=== PATIENT | female | born 1950 | race Caucasian/White ===

== ENCOUNTER 2020-03-26 01:56 | Outpatient (CLI) | payer MEDICARE, BC, SELFPAY ==
--- NOTE | 2020-03-26 | DI.MAMMO_ITS ---
EXAM: MG MAMMO SCREENING CLINICAL HISTORY: SCREENING, Z12.31 TECHNIQUE: Mammograms were interpreted according to the usual protocol including computer analysis w [email or web address] CAD system, tomosynthesis and C-view imaging. COMPARISON: FINDINGS: The breasts are of moderate density with fairly symmetrical distribution of fibroglandular tissue. N o dominant mass or clumped microcalcification is identified in either breast. The current examinatio n is compared with previous examinations including January 2018 and there has been no gross interval patel ge in appearance in comparison with the prior studies. IMPRESSION: No specific evidence of malignancy at this time. Routine screening examinations are suggested at yea rly intervals in this age group according to the ACS ACR guidelines. BI-RADS Category 1 - Negative Breast Density - Category B - Scattered areas of fibroglandular density
== END 2020-03-26 02:16 ==
PROVIDERS: PCP Family Medicine; Visit Provider Family Medicine
DX: Z12.31 Encounter for screening mammogram for malignant neoplasm of breast (principal)
CPT/HCPCS: 77063; 77067

== ENCOUNTER 2022-05-11 16:38 | Outpatient (REF) | payer MEDICARE, BC, SELFPAY | END 2022-05-11 16:39 | disposition home or self-care (01) | LOC: LBN 16:38 | PROVIDERS: PCP Family Medicine; Visit Provider Registered Nurse Maternal Newborn | DX: H61.891 Other specified disorders of right external ear | CPT/HCPCS: 87070 ==

== ENCOUNTER 2022-05-15 19:35 | Emergency (ER) | payer MEDICARE, BC, SELFPAY ==
[2022-05-15] VITALS (33 sets, daily range): BP systolic 126–181; BP diastolic 31–74; PULSE 71–88; RESP 11–24; TEMP 36.6; O2SAT 79–99
--- NOTE | 2022-05-15 19:30 | RT.EKG_ITS ---
APPROVED REPORT Exam: Resting ECG Reason for Exam: syncope Patient Location: E HR:73 bpm ECG Measurements Heart Rate 73 AXIS CO 172 P 58 QRSd 158 QRS 87 QT 460 T -2 QTc 506 Conclusion Sinus rhythm Right bundle branch block.
--- NOTE | 2022-05-15 19:40 | ED.GENADUL_ITS ---
Discharge Plan Disposition Patient Disposition: HOME Condition: Stable Discharge Details Clinical Impression: Syncope Primary Care Provider: Raiza De La Vega ED Provider: Gary Wu Home Meds and New Rx's Prescriptions: Continued aspirin 81 mg tablet,delayed release (DR/EC) 81 mg PO DAILY glipizide 10 mg tablet extended release 24hr 10 mg PO DAILY Rx Instructions: take with 5 mg to equal 15 mg glipizide 5 mg tablet extended release 24 hr 5 mg PO DAILY Rx Instructions: take with 10 mg to equal 15 mg daily metformin 750 mg tablet extended release 24 hr 750 mg PO DAILY Rx Instructions: Take 2 tablets with breakfast, 1 with the evening meal metoprolol succinate 100 mg capsule,sprinkle,ER 24hr 100 mg PO BID hydrocortisone valerate 0.2 % ointment 1 applic topical DAILY PRN lisinopril 40 mg tablet 40 mg PO DAILY hydrochlorothiazide 50 mg tablet 50 mg PO DAILY Discharge Instructions Instructions: Syncope (ED) Additional Instructions: At this time you are asymptomatic and your laboratory values did not reveal any obvious emergent process. There is no clear source of your syncopal episode. We did discuss admitting you for observation but you have declined and request to be discharged home. Please watch for new or worsening symptoms and return to the ER for any concerns. I strongly recommend contacting your primary care provider first thing tomorrow morning to discuss your ER visit, symptoms, need for outpatient reevaluation. Your thyroid stimulating hormone was elevated today at 5.80 this will need to be monitored and you will potentially need to be on medications for this, discuss this with your PCP as well. Discharge Data Discharge Date/Time-TO BE ENTERED AT DEPARTURE: 05/15/22 23:52 Medical Decision Making This is a 71-year-old female with a past medical history of diabetes, CKD, a smoker, hypertension, hypercholesteremia, presenting to the ER for evaluation of a syncopal episode that occurred prior to arrival, now asymptomatic. Given her age and multiple comorbidities will initiate a cardiac work-up, provide IV fluids, and I will obtain a head CT as she reported feeling lightheadedness right after the incident. Clinically she appears well, nontoxic, slightly hypertensive at 181/48 but denies any headache, visual changes, chest pain, shortness of breath, etc. She is otherwise hemodynamically stable and neurologically intact. Laboratory values reveal a white blood cell count of 11.44 hemoglobin 11.7 hematocrit 36.3 platelet count 432. INR 1.0. Sodium and potassium unremarkable, anion gap slightly elevated at 13.3. Creatinine of 1.7 with a GFR of 29. Magnesium 1.5. Will provide 1 g IV. Troponin less than 50 TSH is 5.80. Alcohol 17.5. COVID-negative Chest x-ray and CT of brain unremarkable per radiology Patient remains asymptomatic. We discussed her initial work-up. She is receiving IV magnesium and will receive a total of 2 L IV fluid, she is agreeable to a repeat BMP and delta troponin. Patient is ambulatory without difficulty. Tolerated p.o. intake without difficulty. She feels well, at baseline, asymptomatic. I did explain to her that there is no clear source of her syncope and we could certainly admit her for observation but she declines, feels well and prefers to go home. Delta troponin less than 50. Patient repeat BMP reveals creatinine of 1.6 with a GFR of 31.60. Anion gap is close to 9.6. Electrolytes unremarkable Strict discharge and return precautions were provided. Patient understands, is agreeable to this plan, and has no additional questions or concerns upon discharge. This documentation was generated using [employer] system, please disregard any oddities of phrase or misspellings. Medical Records Medical records reviewed: Yes I reviewed the patient's medical records. Imaging Data Radiologic Study: Attestation: I personally reviewed and interpreted this imaging study as follows: Imaging: CT Scan Radiologist's impression: PROCEDURE INFORMATION: Exam: CT Head Without Contrast Exam date and time: 05/15/2022 8:30 PM Age: 71 years old Clinical indication: Dizziness; Patient HX: Dizzy; Per PT: Loc for 5 minutes TECHNIQUE: Imaging protocol: Computed tomography of the head without contrast. COMPARISON: No relevant prior studies available. FINDINGS: Brain: No shift, mass, mass effect, or acute hemorrhage. Normal white matter density for age. No subdural collection. Cerebral ventricles: No unusual ventriculomegaly for age. Pituitary gland and sella: No obvious mass or expansile change. Empty sella normal variation. Paranasal sinuses: Visualized sinuses are unremarkable. No fluid levels. Mastoid air cells: Visualized mastoid air cells are well aerated. Orbital cavities: Unremarkable by this method. Bones/joints: Unremarkable. No acute fracture. No destructive lesion. Soft tissues: Unremarkable. Vasculature: Moderate amount carotid siphon calcification. IMPRESSION: No acute intracranial abnormality. Radiologic Study #2: Attestation: I personally reviewed and interpreted this imaging study as follows: Imaging: X-Ray Radiologist's impression: PROCEDURE INFORMATION: Exam: XR Chest Exam date and time: 05/15/2022 8:33 PM Age: 71 years old Clinical indication: Other: Syncope TECHNIQUE: Imaging protocol: Radiologic exam of the chest. Views: 2 views. COMPARISON: No relevant prior studies available. FINDINGS: Lungs: 16 mm ellipsoid density in the upper lobe is probably spurring from the left 1st coracoclavicular joint, as on lateral this projects in an extra clip pleural anterior location. No consolidation. Pleural spaces: Unremarkable. No pleural effusion. No pneumothorax. Heart/Mediastinum: Unremarkable. No cardiomegaly. Bones/joints: Mild degenerative changes for both shoulders. IMPRESSION: No acute findings. Lab Data Lab results reviewed: Yes I reviewed the patient's lab results. Labs: Laboratory Tests Range/Units 05/15/22 05/15/22 05/15/22 20:10 20:10 20:10 WBC (4.4-10.8) 10^3/uL 11.44 H RBC (3.93-5.22) 10^6/uL 4.23 Hgb (11.2-15.7) g/dL 11.7 Hct (36.0-46.0) % 36.3 MCV (80-95) fL 86 MCH (27.0-33.0) pg 27.7 MCHC (32.0-36.0) % 32.2 RDW (11.7-14.6) % 15.8 H Plt Count (130-400) 10^3/uL 432 H MPV (8.0-11.0) fL 10.6 Immature Gran % 0.3 Neutrophils % 61.9 Lymphocytes % 28.9 Monocytes % 6.6 Eosinophils % 1.5 Basophils % 0.8 Nucleated RBC % (0.0-0.3) % 0.0 Absolute Neutrophils (1.2-6.7) 10^3/uL 7.08 H Absolute Lymphocytes (1.2-3.4) 10^3/uL 3.31 Absolute Monocytes (0.1-0.8) 10^3/uL 0.76 Absolute Eosinophils (0.0-0.7) 10^3/uL 0.17 Absolute Basophils (0.0-0.2) 10^3/uL 0.09 PT (9.3-11.0) sec 10.4 INR (0.9-1.1) 1.0 APTT (21.0-27.5) sec 23.4 Sodium (136-145) mmol/L 141 Potassium (3.5-5.1) mmol/L 3.9 Chloride (98-107) mmol/L 102 Carbon Dioxide (21.0-32.0) mmol/L 25.7 Anion Gap (3-11) mmol/L 13.3 H BUN (7-18) mg/dL 25 H Creatinine (0.55-1.02) mg/dL 1.7 H Estimated GFR/1.73 m2 (mL/min/1.73m2) 29.46 Glucose (74-106) mg/dL 124 H Calcium (8.5-10.1) mg/dL 9.7 Magnesium (1.8-2.4) mg/dL 1.5 L Total Bilirubin (0.2-1.0) mg/dL 0.2 AST (15-37) U/L 15 ALT (14-59) U/L 17 Alkaline Phosphatase (46-116) U/L 79 Troponin I (<or=60) ng/L < 50 Total Protein (6.4-8.2) g/dL 8.2 Albumin (3.4-5.0) g/dL 3.4 TSH (0.36-3.74) uIU/mL 5.80 H Ethyl Alcohol (<10) mg/dL COVID-19 Source SARS-CoV-2 (PCR) (Negative) Range/Units 05/15/22 05/15/22 05/15/22 20:10 21:28 22:05 WBC (4.4-10.8) 10^3/uL RBC (3.93-5.22) 10^6/uL Hgb (11.2-15.7) g/dL Hct (36.0-46.0) % MCV (80-95) fL MCH (27.0-33.0) pg MCHC (32.0-36.0) % RDW (11.7-14.6) % Plt Count (130-400) 10^3/uL MPV (8.0-11.0) fL Immature Gran % Neutrophils % Lymphocytes % Monocytes % Eosinophils % Basophils % Nucleated RBC % (0.0-0.3) % Absolute Neutrophils (1.2-6.7) 10^3/uL Absolute Lymphocytes (1.2-3.4) 10^3/uL Absolute Monocytes (0.1-0.8) 10^3/uL Absolute Eosinophils (0.0-0.7) 10^3/uL Absolute Basophils (0.0-0.2) 10^3/uL PT (9.3-11.0) sec INR (0.9-1.1) APTT (21.0-27.5) sec Sodium (136-145) mmol/L 139 Potassium (3.5-5.1) mmol/L 4.0 Chloride (98-107) mmol/L 103 Carbon Dioxide (21.0-32.0) mmol/L 26.4 Anion Gap (3-11) mmol/L 9.6 BUN (7-18) mg/dL 24 H Creatinine (0.55-1.02) mg/dL 1.6 H Estimated GFR/1.73 m2 (mL/min/1.73m2) 31.60 Glucose (74-106) mg/dL 154 H Calcium (8.5-10.1) mg/dL 8.9 Magnesium (1.8-2.4) mg/dL Total Bilirubin (0.2-1.0) mg/dL AST (15-37) U/L ALT (14-59) U/L Alkaline Phosphatase (46-116) U/L Troponin I (<or=60) ng/L Total Protein (6.4-8.2) g/dL Albumin (3.4-5.0) g/dL TSH (0.36-3.74) uIU/mL Ethyl Alcohol (<10) mg/dL 17.5 H COVID-19 Source Nasal/Nares SARS-CoV-2 (PCR) (Negative) Negative ECG Data Attestation: I personally reviewed and interpreted this ECG (s) as follows: Interpretation: Sinus rhythm, ventricular rate of 73, right bundle branch block. No STEMI. HPI General Mode of arrival: EMS . Date/Time Provider Initiated Documentation: 05/15/22 19:37 . Limitations to Documentation: no limitations . Information obtained by: patient, family and EMS . HPI Narrative: This is a 71-year-old female with a past medical history that includes CKD, hypercholesteremia, hypertension, smoker, diabetes, presenting to the ER for a syncopal episode and is now asymptomatic. Patient states that she ate dinner and felt fine and then soon after while sitting down felt warm and flushed and then subsequently had a syncopal episode. reports that she was unconscious for no more than a minute or so and seemed to be breathing deeply during that time. There is no seizure activity witnessed. Upon awaking she is looked pale, diaphoretic, felt lightheaded, and did vomit x1. This lasted for no more than 5-10 minutes and reports all symptoms resolved spontaneously she is now asymptomatic. She states she had a similar episode a couple of years ago but did not seek medical attention at that time. Patient denies recent illness or trauma. Patient states that she did have a glass or 2 of wine today which she does not typically have. Related Data Home Medications Medication Instructions Recorded Confirmed aspirin 81 mg tablet,delayed 81 mg PO DAILY 12/10/21 05/15/22 release glipizide 10 mg tablet, extended 10 mg PO DAILY 12/10/21 05/15/22 release 24 hr glipizide 5 mg tablet, extended 5 mg PO DAILY 12/10/21 05/15/22 release 24 hr hydrochlorothiazide 50 mg tablet 50 mg PO DAILY 12/10/21 05/15/22 hydrocortisone valerate 0.2 % 1 applic topical DAILY PRN 12/10/21 05/15/22 topical ointment lisinopril 40 mg tablet 40 mg PO DAILY 12/10/21 05/15/22 metformin 750 mg tablet,extended 750 mg PO DAILY 12/10/21 05/15/22 release 24 hr metoprolol succinate 100 mg 100 mg PO BID 12/10/21 05/15/22 capsule sprinkle, ext. release 24 hr Allergies Allergy/AdvReac Type Severity Reaction Status Date / Time gemfibrozil [From Lopid] Allergy Nausea Verified 05/15/22 19:54 turkey Allergy Verified 05/15/22 19:54 rosuvastatin [From Crestor] AdvReac Mild Other (See Verified 05/15/22 19:54 Comment) amlodipine AdvReac Diarrhea Verified 05/15/22 19:54 diltiazem AdvReac Other (See Verified 05/15/22 19:54 Comment) Review of Systems Constitutional Constitutional: Denies fatigue, Denies fever(s), Denies headache(s) and Denies weakness Eyes Eyes: Denies change in vision ENT Ears, Nose, Mouth, and Throat: Denies headache(s) and Denies neck pain Cardiovascular Cardiovascular: Denies chest pain and Denies dyspnea Respiratory Respiratory: Denies cough and Denies dyspnea Gastrointestinal Gastrointestinal: Denies abdominal pain, Denies nausea and Reports vomiting Musculoskeletal Musculoskeletal: Denies back pain, Denies neck pain, Denies numbness and Denies tingling Integumentary/Breasts Skin/Breast: Denies rash Neurologic Neurologic: Denies headache(s), Denies numbness, Denies tingling and Denies weakness Endocrine Endocrine: Denies fatigue Hematologic/Lymphatic Hematologic/Lymphatic: Denies easy bleeding and Denies easy bruising PFSH All Active Problems (Updated 05/15/22 @ 23:18 by SAMY Schneider) Syncope (Chronic) Skin lesion of right ear (Acute) 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 Sister Multiple sclerosis Social History Smoking/Tobacco Use Status: Current every day Tobacco Type: cigarettes Smoking packs per day: 0.5 Smoking cigarettes per day: 10.0 Smoking risk assessment performed?: Yes Alcohol Intake: current Alcohol Intake frequency: holidays/special occasions only Drug use: Never Substance use type: does not use Pets and animals: Yes Pets and animals: cat(s) and dog(s) Exam Const General: cooperative, healthy appearing, comfortable and no acute distress Orientation: alert, awake and oriented x3 HENAZ Head: normal to inspection, normocephalic and atraumatic General nose exam: external nose normal Face and sinus: normal facial exam Mouth: moist mucous membranes Throat: posterior oropharynx normal Eyes General: appearance normal, both eyes and all related structures Conjunctivae: conjunctivae normal Neck Neck: normal visual inspection, full ROM, no meningeal signs, trachea midline and supple Resp Effort & Inspection: normal respiratory effort and able to speak in complete sentences Auscultation: clear to auscultation bilaterally Cardio Rate: regular rate Rhythm: regular rhythm GI Palpation: soft, not firm, no guarding, no pulsatile masses and nontender Auscultation: normal bowel sounds Back/Spine/Pelvis Back: no CVA tenderness and No back tenderness Skin General skin exam: no rashes or lesions noted Neuro General: patient alert, patient awake, patient oriented x3, moves all extremities and no focal motor deficits Cranial Nerves: CN's II-XI intact bilaterally Cognition: normal cognition Speech: speech normal Gait: normal gait Motor: muscle tone normal throughout, strength 5/5 throughout, no pronator drift, no movement abnormalities noted and no fasciculations Sensory Exam: no sensory deficits noted Extrem General: normal to inspection, full ROM, capillary refill normal, no pedal edema and no calf tenderness Psych Appearance: grossly normal Mental Status: mental status grossly normal
--- NOTE | 2022-05-15 19:45 | DI.CT_ITS ---
Exam(s) CT HEAD WO EXAM: CT HEAD WO CLINICAL HISTORY: dizzy. TECHNIQUE: Imaging Protocol: Axial computed tomography images with coronal and sagittal reformatted images were created and reviewed COMPARISON: No exams were available for comparison FINDINGS: There are no skull fractures nor fluid in the visualized paranasal sinuses. There is no evidence of intracranial hemorrhage, mass effect, or shift of midline structures. There are no extra-axial fluid collections. The ventricles are not enlarged or shifted and there is no blo od within the ventricular system nor within the basal cisterns. IMPRESSION: No acute intracranial findings on this noninfused CT scan of the brain. If clinically indicated follow-up MRI can be performed. RADIATION DOSE DELIVERED: 854.93mGy.cm Total DLP DATA REPOSITORY: All CT scans at this facility are submitted to the National Radiology Data Registry (NRDR) Dose Index Registry (DIR) with the [employer] (ACR). RADIATION OPTIMIZATION: All CT scans at this facility use at least one of these dose optimization te chniques: automated exposure control; mA and/or kV adjustment per patient size (includes targeted exa ms where dose is matched to clinical indication); or iterative reconstruction.
--- NOTE | 2022-05-15 19:45 | DI.RAD_ITS ---
Exam(s) XR CHEST 2V PA LATERAL EXAM: XR CHEST 2V PA LATERAL CLINICAL HISTORY: syncope. TECHNIQUE: 2D digital imaging was performed. COMPARISON: No exams were available for comparison FINDINGS: 2 views: Heart size is normal. The mediastinum is not widened. Right lung is clear. There is a 2 x 1.5 cm density projected over the left upper lobe. This may be related to the anterior aspect of the 1st rib or possibly significant lung finding. On the lateral v iew is located anteriorly No pleural effusions. IMPRESSION: As above. Recommend chest CT scan to ensure that the finding projected over the left upper lobe is indeed not in the lung.CT scan may also add specificity given its appearance is somewhat denser than typical for joint finding. DATA REPOSITORY: RADIATION DOSE DELIVERED:
[2022-05-15 20:14] LABS: Abs Immature Grans 0.04 10^3/uL (0.0-0.06); Absolute Basophil Count 0.09 10^3/uL (0.0-0.2); Absolute Eosinophil Count 0.17 10^3/uL (0.0-0.7); Absolute Lymphocyte Count 3.31 10^3/uL (1.2-3.4); Absolute Monocyte Count 0.76 10^3/uL (0.1-0.8); Basophils % 0.8; Eosinophils % 1.5; HCT 36.3 % (36.0-46.0); HGB 11.7 g/dL (11.2-15.7); Immature Grans % 0.3; Lymphocytes % 28.9; MCH 27.7 pg (27.0-33.0); MCHC 32.2 % (32.0-36.0); MCV 86 fL (80-95); MPV 10.6 fL (8.0-11.0); Monocytes % 6.6; Neutrophils % 61.9; Platelet Count 432 10^3/uL (130-400); RBC 4.23 10^6/uL (3.93-5.22); RDW 15.8 % (11.7-14.6); RDW-SD 49.1 fL; WBC 11.44 10^3/uL (4.4-10.8)
[2022-05-15 20:15] LABS: Absolute Neutrophil Count 7.08 10^3/uL (1.2-6.7)
[2022-05-15 20:27] LABS: PTT Activated 23.4 sec (21.0-27.5); Prothrombin Time 10.4 sec (9.3-11.0)
[2022-05-15 20:32] LABS: ETHANOL BLOOD 17.5 mg/dL (<10)
[2022-05-15] MEDS: Normal Saline 1,000 ML 1000 ML IV (20:35)
[2022-05-15 20:38] LABS: ALT 17 U/L (14-59); AST 15 U/L (15-37); Albumin 3.4 g/dL (3.4-5.0); Alkaline Phosphatase 79 U/L (46-116); Anion Gap 13.3 mmol/L (3-11); BUN 25 mg/dL (7-18); Bilirubin, Total 0.2 mg/dL (0.2-1.0); CO2 25.7 mmol/L (21.0-32.0); CREATININE 1.7 mg/dL (0.55-1.02); Calcium 9.7 mg/dL (8.5-10.1); Chloride 102 mmol/L (98-107); Estimated GFR 29.46 (mL/min/1.73m2); Glucose 124 mg/dL (74-106); Magnesium 1.5 mg/dL (1.8-2.4); Potassium 3.9 mmol/L (3.5-5.1); Sodium 141 mmol/L (136-145); Total Protein 8.2 g/dL (6.4-8.2); Troponin I < 50 ng/L (<or=60)
--- NOTE | 2022-05-15 20:49 | DI.VRAD_ITS ---
PROCEDURE INFORMATION: Exam: CT Head Without Contrast Exam date and time: 05/15/2022 8:30 PM Age: 71 years old Clinical indication: Dizziness; Patient HX: Dizzy; Per PT: Loc for 5 minutes TECHNIQUE: Imaging protocol: Computed tomography of the head without contrast. COMPARISON: No relevant prior studies available. FINDINGS: Brain: No shift, mass, mass effect, or acute hemorrhage. Normal white matter density for age. No subdural collection. Cerebral ventricles: No unusual ventriculomegaly for age. Pituitary gland and sella: No obvious mass or expansile change. Empty sella normal variation. Paranasal sinuses: Visualized sinuses are unremarkable. No fluid levels. Mastoid air cells: Visualized mastoid air cells are well aerated. Orbital cavities: Unremarkable by this method. Bones/joints: Unremarkable. No acute fracture. No destructive lesion. Soft tissues: Unremarkable. Vasculature: Moderate amount carotid siphon calcification. IMPRESSION: No acute intracranial abnormality. Dictated and Authenticated by: Wiliam Kenny MD. Ordering:ESTHELA Vega MD
--- NOTE | 2022-05-15 20:51 | DI.VRAD_ITS ---
PROCEDURE INFORMATION: Exam: XR Chest Exam date and time: 05/15/2022 8:33 PM Age: 71 years old Clinical indication: Other: Syncope TECHNIQUE: Imaging protocol: Radiologic exam of the chest. Views: 2 views. COMPARISON: No relevant prior studies available. FINDINGS: Lungs: 16 mm ellipsoid density in the upper lobe is probably spurring from the left 1st coracoclavicular joint, as on lateral this projects in an extra clip pleural anterior location. No consolidation. Pleural spaces: Unremarkable. No pleural effusion. No pneumothorax. Heart/Mediastinum: Unremarkable. No cardiomegaly. Bones/joints: Mild degenerative changes for both shoulders. IMPRESSION: No acute findings. Dictated and Authenticated by: Wiliam Kenny MD. Ordering:ESTHELA Vega MD
[2022-05-15] MEDS: MAGNESIUM SULFATE 1 GM/100 ML BAG IVPB (21:15)
[2022-05-15 21:29] LABS: Source Nasal/Nares
[2022-05-15] MEDS: Lactated Ringers 1,000 ML 1000 ML IV (21:50)
[2022-05-15 22:03] LABS: COVID-19 PCR Negative (Negative)
[2022-05-15 22:18] LABS: Anion Gap 9.6 mmol/L (3-11); BUN 24 mg/dL (7-18); CO2 26.4 mmol/L (21.0-32.0); CREATININE 1.6 mg/dL (0.55-1.02); Calcium 8.9 mg/dL (8.5-10.1); Chloride 103 mmol/L (98-107); Glucose 154 mg/dL (74-106); Sodium 139 mmol/L (136-145)
[2022-05-15 23:24] LABS: Troponin I < 50 ng/L (<or=60)
[2022-05-15 23:36] LABS: Bilirubin Negative (Negative); Blood Negative (Negative); Clarity Sl Cloudy (Clear); Glucose Negative (Negative); Ketones Negative (Negative); Leukocyte Esterase Small (Negative); Nitrite Negative (Negative); Specific Gravity 1.015 (1.005-1.025); Urobilinogen 0.2 EU/dL (Up TO 0.2)
[2022-05-15 23:45] LABS: Bacteria Few HPF (Negative); C & S Indicated? No/Sq. Contamination; Casts Negative LPF (Negative); Crystals Negative HPF (Negative); Epithelial Cells Many HPF (Negative); Mucus Negative (Negative); RBC 0-2 HPF (0-2)
== END 2022-05-15 23:52 | disposition home or self-care (01) ==
PROVIDERS: Emergency Provider Physician Assistant; PCP Family Medicine
DX: R55 Syncope and collapse (principal); I12.9 Hypertensive chronic kidney disease with stage 1 through stage 4 chronic kidney disease, or unspecified chronic kidney disease; E11.22 Type 2 diabetes mellitus with diabetic chronic kidney disease; N18.9 Chronic kidney disease, unspecified; R94.6 Abnormal results of thyroid function studies; Z79.899 Other long term (current) drug therapy; Z20.822 Contact with and (suspected) exposure to COVID-19
CPT/HCPCS: 80048; 80053; 87635; 93005; 96361; 96365; 96366; 99284; 99285; 70450; 71046; 80320; 81003; 81015; 83735; 84443; 84484; 85025; 85610; 85730; 93010; J3475

== ENCOUNTER 2022-07-04 13:25 | Outpatient (REF) | payer MEDICARE, BC, SELFPAY ==
--- NOTE | 2022-07-04 11:30 | SKI_PTH ---
PATIENT: Antoinette Vela LOC: [facility] U#:[id number] AGE/SX: 71/F ROOM: RE07/04/[address]: Marty Veronica MD : [id number] BED: DIS: 07/04/2022 SPEC #: [id number] RECD: 07/04/22 16:26 STATUS: GEETA REQ #: [id number] TITA: 07/04/22 11:[address]: Marty Veronica DEPT: Surgical Specimen RECD BY: Georgette Osborn ENTERED: 07/04/22 16:27 SP TYPE: SKI OTHR DR: Raiza De La Vega Tissues: 1 - SKIN BIOPSY(SHAVE/PUNCH) Procedures: GROSS AND MICRO LEVEL 3 Comments: [id number]
== END 2022-07-04 13:26 | disposition home or self-care (01) ==
LOC: LBN 13:25
PROVIDERS: PCP Family Medicine; Visit Provider Otolaryngology
DX: L72.8 Other follicular cysts of the skin and subcutaneous tissue (principal); L90.5 Scar conditions and fibrosis of skin
CPT/HCPCS: 88304; 88305

== ENCOUNTER → 2022-08-31 01:54 | Outpatient (CLI) | payer MEDICARE, BC, SELFPAY ==
--- NOTE | 2022-08-31 12:52 | DI.MAMMO_ITS ---
Exam(s) MAMMO SCREENING EXAM: MAMMO SCREENING CLINICAL HISTORY: SCREENING, Z12.31. TECHNIQUE: Bilateral full field digital CC and MLO mammographic images were obtained with 3D tomosyn thesis and utilizing computer aided detection (CAD). COMPARISON: Prior mammograms were reviewed. FINDINGS: There has been no significant change in the appearance and distribution of the fibroglandular tissue. There are no new spiculated masses nor malignant appearing microcalcification groups. Scattered benign-appearing micro and macro calcifications are again noted in both breasts as is a sma ll benign-appearing unchanged microcalcification group lateral of center in the right breast. Small nodular density anteriorly in the left breast is unchanged from prior mammograms. There is no significant architectural distortion nor skin thickening-retraction. IMPRESSION: No radiographic evidence of malignancy. Stable benign-appearing findings. BI-RADS Category 2 - Benign Findings Breast Density - Category B - Scattered areas of fibroglandular density Breast density Category C or D implies that the patient has dense breast tissue. Dense breast tissue can make it harder to find cancer on a mammogram. Dense breast tissue is also associated with an incr eased risk of breast cancer. This information about the result of the mammogram report was provided to the patient to raise their awareness. Use this report when you speak with the patient about their risks for breast cancer, which includes their family history. At that time, you may recommend additional screening tests (Ultrasoun d or MRI) as these tests may add significant information. A negative radiographic report should not delay biopsy if a dominant or clinically suspicious mass is present. Up to ten percent of cancers are not identified on mammography. A negative report may reinforce clinical impression. Adenosis and dense breasts may obscure an underlying neoplasm. False positive reports average 6 to 10%. Patient will receive a letter notifying them of these results.
== END ==
PROVIDERS: PCP Family Medicine; Visit Provider Family Medicine
DX: Z12.31 Encounter for screening mammogram for malignant neoplasm of breast (principal); R92.0 Mammographic microcalcification found on diagnostic imaging of breast
CPT/HCPCS: 77063; 77067

== ENCOUNTER 2024-06-20 21:32 | Outpatient (REF) | payer MEDICARE, BC, SELFPAY ==
[2024-06-20 22:33] LABS: Hemoglobin A1C 7.6 % (<5.7)
[2024-06-20 22:55] LABS: Anion Gap 11.4 mmol/L (3-11); BUN 22 mg/dL (7-18); CO2 24.6 mmol/L (21.0-32.0); CREATININE 1.7 mg/dL (0.55-1.02); Calcium 10.1 mg/dL (8.5-10.1); Calculated LDL 175 mg/dL (<100); Chloride 104 mmol/L (98-107); Cholesterol 244 mg/dL (<200); Estimated GFR 31.08 (mL/min/1.73m2); Glucose 162 mg/dL (74-106); HDL Cholesterol 38 mg/dL (40-60); Potassium 4.2 mmol/L (3.5-5.1); Sodium 140 mmol/L (136-145); Triglyceride 157 mg/dL (<150)
== END 2024-06-20 21:33 | disposition home or self-care (01) ==
LOC: NCHCN 21:32
PROVIDERS: PCP Family Medicine; Visit Provider Family Medicine
DX: E11.9 Type 2 diabetes mellitus without complications (principal)
CPT/HCPCS: 80048; 80061; 83036; 83735

== ENCOUNTER → 2024-07-05 13:57 | Outpatient (BNVA) | payer MEDICARE, BC, SELFPAY | PROVIDERS: PCP Family Medicine; Referring Provider Family Medicine; Visit Provider Physical Therapy Assistant | DX: I73.9 Peripheral vascular disease, unspecified (principal) | CPT/HCPCS: 93922 ==

== ENCOUNTER 2024-09-27 00:36 | Outpatient (CLI) | payer MEDICARE, BC, SELFPAY ==
--- NOTE | 2024-09-27 | DI.MAMMO_ITS ---
Exam(s) MAMMO SCREENING EXAM: MAMMO SCREENING CLINICAL HISTORY: SCREENING, Z12.31 TECHNIQUE: Mammograms were interpreted according to the usual protocol including computer analysis w [employer] CAD system, tomosynthesis and C-view imaging. COMPARISON: 2015 through 2021 FINDINGS: The breasts are composed of scattered fibroglandular densities, Breast Density category B. No suspicious masses or suspicious microcalcifications are seen. No skin thickening or abnormal axillary lymph nodes are seen. There has been no significant change from prior exams. IMPRESSION: BI-RADS Category 1, Negative mammogram Yearly screening mammography is recommended. Breast Density - Category B, scattered fibroglandular densities. A negative radiographic report should not delay biopsy if a dominant or clinically suspicious mass is present. Up to ten percent of cancers are not identified on mammography. A negative report may reinforce clinical impression. Adenosis and dense breasts may obscure an underlying neoplasm. False positive reports average 6 to 10%. Patient will receive a letter notifying them of these results.
--- NOTE | 2024-09-27 | DI.RAD_ITS ---
Exam(s) XR ELBOW LT COMPLETE EXAM: XR ELBOW LT COMPLETE CLINICAL HISTORY: PAIN OF LT ELBOW JOINT, M25.522. TECHNIQUE: 2D digital imaging was performed. Three views. COMPARISON: No exams were available for comparison FINDINGS: BONES: No acute fracture is present. No bony destructive lesion is seen. Spurring at coronoid process and olecranon. JOINTS: The elbow is normally aligned. No joint effusion is seen. Joint spaces are maintained. SOFT TISSUE: Mild calcifications adjacent to the epicondyles. IMPRESSION: Mild degenerative changes. Mild bicondylar calcific tendinosis. DATA REPOSITORY: RADIATION DOSE DELIVERED:
== END 2024-09-27 00:56 ==
LOC: DI 00:36
PROVIDERS: PCP Family Medicine; Visit Provider Family Medicine
DX: M25.522 Pain in left elbow (principal); Z12.31 Encounter for screening mammogram for malignant neoplasm of breast
CPT/HCPCS: 77063; 77067; 73080

== ENCOUNTER 2024-12-31 16:40 | Outpatient (REF) | payer MEDICARE, BC, SELFPAY ==
[2024-12-31 21:09] LABS: Anion Gap 8.3 mmol/L (3-11); BUN 22 mg/dL (7-18); CO2 28.7 mmol/L (21.0-32.0); CREATININE 1.8 mg/dL (0.55-1.02); Calculated LDL 130 mg/dL (<100); Chloride 103 mmol/L (98-107); Cholesterol 213 mg/dL (<200); Estimated GFR 28.84 (mL/min/1.73m2); Glucose 216 mg/dL (74-106); HDL Cholesterol 37 mg/dL (>or=50); Potassium 4.6 mmol/L (3.5-5.1); Sodium 140 mmol/L (136-145); Triglyceride 232 mg/dL (<150)
[2025-01-02 10:32] LABS: Hepatitis C Ab w Rflx HCV PCR Negative (Negative)
== END 2024-12-31 16:41 | disposition home or self-care (01) ==
LOC: NCHCN 16:40
PROVIDERS: PCP Family Medicine; Visit Provider Family Medicine
DX: E78.5 Hyperlipidemia, unspecified (principal); N18.9 Chronic kidney disease, unspecified; Z11.59 Encounter for screening for other viral diseases
CPT/HCPCS: 80048; 80061; 86803

== ENCOUNTER 2025-08-05 14:41 | Outpatient (REF) | payer MEDICARE, BC, SELFPAY ==
[2025-08-05 20:51] LABS: HCT 41.2 % (36.0-46.0); HGB 13.1 g/dL (11.2-15.7); MCH 27.9 pg (27.0-33.0); MCHC 31.8 % (32.0-36.0); MCV 88 fL (80-95); MPV 12.3 fL (8.0-11.0); Platelet Count 290 10^3/uL (130-400); RBC 4.70 10^6/uL (3.93-5.22); RDW 15.5 % (11.7-14.6); RDW-SD 49.9 fL; WBC 10.65 10^3/uL (4.4-10.8)
[2025-08-05 20:57] LABS: Anion Gap 10.8 mmol/L (3-11); BUN 20 mg/dL (7-18); CO2 29.2 mmol/L (21.0-32.0); Calcium 9.5 mg/dL (8.5-10.1); Chloride 100 mmol/L (98-107); Glucose 271 mg/dL (74-106); Potassium 4.2 mmol/L (3.5-5.1); Sodium 140 mmol/L (136-145)
[2025-08-05 21:52] LABS: Microalb ug/mg Crea 58.5 ug/mg Cr
== END 2025-08-05 14:42 | disposition home or self-care (01) ==
LOC: NCHCN 14:41
PROVIDERS: PCP Family Medicine; Visit Provider Family Medicine
DX: E11.9 Type 2 diabetes mellitus without complications (principal); N18.4 Chronic kidney disease, stage 4 (severe)
CPT/HCPCS: 80048; 85027; 82043; 82570